=== PATIENT | male | born 1975 | race Caucasian/White ===

== ENCOUNTER 2022-08-02 08:09 | Outpatient (CLI) | payer OTHER, SELFPAY ==
[2022-08-02 13:52] LABS: Chloride* 106 mmol/L (96-114); Potassium* 4.4 mmol/L (3.6-5.1); Sodium* 138 mmol/L (135-149)
[2022-08-02 13:55] LABS: Blood Urea Nitrogen* 19 mg/dL (5-24); Calcium* 9.3 mg/dL (8.4-10.6); Carbon Dioxide* 25 mmol/L (20-32); Cholesterol* 185 mg/dL (90-199); Creatinine* 1.2 mg/dL (0.5-1.5); Estimated Glomerular Filt Rate 75 ml/min; Glucose* 99 mg/dL (60-115); Triglycerides* 121 mg/dL (40-149)
[2022-08-02 13:56] LABS: HDL Cholesterol* 46 mg/dL (>=40); LDL Cholesterol Calculated 115 mg/dL (<100)
[2022-08-02 14:48] LABS: Free T4 Free Thyroxine* 1.06 ng/dL (0.70-1.85)
== END 2022-08-02 08:10 | disposition home or self-care (01) ==
PROVIDERS: PCP Family Medicine; Visit Provider Family Medicine
DX: Z00.00 Encounter for general adult medical examination without abnormal findings (principal); E03.9 Hypothyroidism, unspecified; Z13.6 Encounter for screening for cardiovascular disorders
CPT/HCPCS: 80048; 80061; 84439; 84443

== ENCOUNTER 2022-08-17 14:28 | Outpatient (CLI) | payer OTHER, SELFPAY ==
[2022-08-17 15:45] VITALS: BP 136/90; PULSE 96; RESP 18
--- NOTE | 2022-08-17 16:56 | PM.ST ---
Stress Test Note Date Date of test: 08/17/22 Providers Primary care provider: Vinay Neumann Stress test physician: Tom Christianson Stress Test Note Stress test ordered: Stress Echo Indication for test: Dyspnea on exertion Results discussion: Patient is a very nice gentleman presents for the above test after review of the cardiac stress test medical history form, and the pretest EKG he would like to proceed pretest EKG shows a ventricular rate of 59, rhythm is sinus, blood pressure 132 on 90. Following standard [facility] protocol, patient is exercised for a total time of 10 minutes, metabolic of 11.7, and condition was felt to be excellent. Note chest pain, and there is no other subjective symptoms suggestive of ischemia, there is no EKG changes notable. There is no dysrhythmias noted. Impression: Negative electrographic portion of stress echo, condition felt to be excellent Follow up suggested: Await echo images clinical correlation of these be needed, patient left this testing facility in excellent condition.
== END 2022-08-17 14:29 | disposition home or self-care (01) ==
LOC: STRESS 14:29
PROVIDERS: PCP Family Medicine; Visit Provider Family Medicine
DX: R06.09 Other forms of dyspnea (principal)
CPT/HCPCS: 93016; 93325; 93351

== ENCOUNTER 2022-11-29 08:48 | Outpatient (CLI) | payer OTHER, SELFPAY | END 2022-11-29 08:49 | disposition home or self-care (01) | LOC: OP CLINIC 08:49 | PROVIDERS: PCP Family Medicine; Visit Provider Surgery | DX: Z12.11 Encounter for screening for malignant neoplasm of colon (principal); K57.30 Diverticulosis of large intestine without perforation or abscess without bleeding | CPT/HCPCS: 45378; J2250; J3010 ==

== ENCOUNTER 2024-02-24 15:12 | Outpatient (CLI) | payer OTHER, SELFPAY | END 2024-02-24 15:13 | disposition home or self-care (01) | LOC: LKVREF 15:13 | PROVIDERS: PCP Family Medicine; Visit Provider Family Medicine | DX: Z00.00 Encounter for general adult medical examination without abnormal findings (principal); E03.9 Hypothyroidism, unspecified; E66.9 Obesity, unspecified; M10.9 Gout, unspecified; R63.5 Abnormal weight gain; R79.89 Other specified abnormal findings of blood chemistry; Z13.6 Encounter for screening for cardiovascular disorders | CPT/HCPCS: 80053; 80061; 84443; 84550 ==

== ENCOUNTER 2024-03-05 11:29 | Outpatient (CLI) | payer OTHER, SELFPAY ==
--- NOTE | 2024-03-05 11:45 | CRLHL7_ITS ---
For Patients: As a result of the Century Cures Act, medical imaging exams and procedure reports are released immediately into your electronic medical record. You may view this report before your referring provider. If you have questions, please contact your health care provider. INDICATION: Abnormal findings of blood chemistry COMPARISON: none TECHNIQUE: Real time johnson scale imaging and color Doppler analysis was performed of the right upper quadrant. FINDINGS: The liver echotexture is diffusely coarsened and increased. The liver measures 17.2 cm. The main portal vein Is patent with antegrade flow and measures 1.3 cm. No intrahepatic mass. There is a normal appearance of the hepatic IVC and proximal abdominal aorta. There is no evidence of ascites. The gallbladder is of normal size and there are multiple stones in the gallbladder layering dependently. The gallbladder wall measures 2.5 mm in thickness. The common bile duct is of normal size and measures 4.6 mm in diameter at the level of the [place] hepatis. The pancreas is not visualized. There is no evidence of a stone or hydronephrosis within the right kidney. The right kidney measures 11.8 cm in length. IMPRESSION: Cholelithiasis. Severe hepatic steatosis. Dictated by Amauri Benson MD @ 03/05/2024 12:45:45 PM (Electronically Signed)
== END 2024-03-05 11:30 | disposition home or self-care (01) ==
PROVIDERS: PCP Family Medicine; Visit Provider Family Medicine
DX: R79.89 Other specified abnormal findings of blood chemistry (principal); K80.20 Calculus of gallbladder without cholecystitis without obstruction; K76.0 Fatty (change of) liver, not elsewhere classified
CPT/HCPCS: 76705

== ENCOUNTER 2024-05-31 10:03 | Outpatient (CLI) | payer OTHER, SELFPAY | END 2024-05-31 10:04 | disposition home or self-care (01) | LOC: NFLDREF 06-05 07:50 | PROVIDERS: PCP Family Medicine; Referring Provider Family Medicine; Visit Provider Family Medicine | DX: E03.9 Hypothyroidism, unspecified (principal) | CPT/HCPCS: 84443 ==

== ENCOUNTER 2025-03-19 07:55 | Outpatient (CLI) | payer OTHER, SELFPAY | END 2025-03-19 07:56 | disposition home or self-care (01) | LOC: NFLDREF 03-21 17:29 | PROVIDERS: PCP Family Medicine; Referring Provider Family Medicine; Visit Provider Family Medicine | DX: E03.9 Hypothyroidism, unspecified (principal); M10.9 Gout, unspecified; R79.89 Other specified abnormal findings of blood chemistry; E66.9 Obesity, unspecified; Z13.1 Encounter for screening for diabetes mellitus; Z12.5 Encounter for screening for malignant neoplasm of prostate; Z13.6 Encounter for screening for cardiovascular disorders | CPT/HCPCS: 80053; 80061; 84443; 84550; G0103 ==